=== PATIENT | male | born 1980 | race Caucasian/White ===

== ENCOUNTER 2024-10-08 15:06 | Inpatient (IN) | payer SELFPAY ==
[2024-10-08] VITALS (11 sets, daily range): BP systolic 119–164; BP diastolic 65–103
[~2024-10-08] VITALS: Ht 185.4 cm; Wt 93.1 kg
[2024-10-08] MEDS ORDERED: LIDOcaine HCl 1% (Local Anesth.) 20 ML VIAL STI STA (15:23)
[2024-10-08] MEDS ORDERED: POVIDONE IODINE 0.5 OZ/BTL TOP ONE (15:25)
[2024-10-08] MEDS ORDERED: PIPERACILLIN Sodium-Tazobactam 3.375 GM in SODIUM CHLORIDE 0.9% 100 ML IV ONE (16:00)
[2024-10-08] MEDS ORDERED: ISOVUE-300 (Iopamidol) 100 ML SDV IV ONE (16:00)
[2024-10-08 16:18] LABS: BASO% 0.3 % (0-3); EOS% 1.2 % (0-8); HEMATOCRIT 45.5 % (39.0-50.0); HEMOGLOBIN 15.6 g/dl (14.0-18.0); IMMATURE GRANULOCYTES 0.4 % (0.0-5.0); MEAN CELL VOLUME 87.8 fL CALC (80.0-100.0); MEAN CORPUSCULAR HGB 30.1 pG CALC (26.0-32.0); MEAN CORPUSCULAR HGB CONC 34.3 g/dL CAL (32.0-36.0); MONO% 8.3 % (2-13); NEUT# 10.14 thou/uL (1.82-7.42); NEUT% 74.8 % (42-76); RED BLOOD COUNT 5.18 mill/uL (4.70-6.10); RED CELL DISTRI WIDTH 12.8 % (11.5-15.5)
[2024-10-08 16:40] LABS: ALBUMIN 4.5 g/dL (3.2-5.0); BILIRUBIN, TOTAL 0.9 mg/dL (0.2-1.3); CREATININE 0.7 mg/dL (0.7-1.3); POTASSIUM 3.9 mmol/l (3.5-5.1); TOTAL PROTEIN 7.8 g/dL (6.3-8.2)
[2024-10-08] MEDS ORDERED: SODIUM CHLORIDE 0.9% 1,000 ML IV ONE (16:50)
[2024-10-08] MEDS ORDERED: HYDROmorphone HCL 2 MG/AMP IV PRN ×2 (18:40→19:10)
[2024-10-08] MEDS ORDERED: MELATONIN 3 MG/TAB PO PRN (18:40)
[2024-10-08] MEDS ORDERED: LACTATED RINGER'S 1,000 ML IV PRN (18:40)
[2024-10-08] MEDS ORDERED: ACETAMINOPHEN 325 MG/TAB PO PRN (18:40)
[2024-10-08] MEDS ORDERED: ONDANSETRON 4 MG/TAB ODT SL PRN (18:40)
[2024-10-08] MEDS ORDERED: ONDANSETRON HCl 4 MG/2 ML SDV IV PRN (18:40)
[2024-10-08] MEDS ORDERED: oxyCODONE HCL 5 MG/TAB PO PRN (18:40)
[2024-10-08] MEDS ORDERED: INSULIN LISPRO 100 UNITS/ML ML SC SCH (21:00)
[2024-10-08] MEDS ORDERED: VANCOMYCIN HCL 2 GM in SODIUM CHLORIDE 0.9% 500 ML IV SCH (21:00)
[2024-10-09] VITALS (10 sets, daily range): BP systolic 104–127; BP diastolic 51–78
[2024-10-09 04:48] LABS: BASO% 0.3 % (0-3); EOS% 1.8 % (0-8); HEMATOCRIT 44.1 % (39.0-50.0); IMMATURE GRANULOCYTES 1.1 % (0.0-5.0); LYMPH% 20.9 % (15-41); MEAN CELL VOLUME 87.5 fL CALC (80.0-100.0); MEAN CORPUSCULAR HGB 29.8 pG CALC (26.0-32.0); MONO% 8.5 % (2-13); NEUT# 7.01 thou/uL (1.82-7.42); NEUT% 67.4 % (42-76); RED BLOOD COUNT 5.04 mill/uL (4.70-6.10); RED CELL DISTRI WIDTH 12.7 % (11.5-15.5)
[2024-10-09] MEDS ORDERED: VANCOMYCIN HCL 1.25 GM in SODIUM CHLORIDE 0.9% 250 ML IV SCH ×2 (05:00→13:00)
[2024-10-09 06:11] LABS: ALBUMIN 3.6 g/dL (3.2-5.0); BILIRUBIN, TOTAL 0.9 mg/dL (0.2-1.3); CREATININE 0.6 mg/dL (0.7-1.3); MAGNESIUM 1.7 mg/dL (1.6-2.3); POTASSIUM 3.8 mmol/l (3.5-5.1); TOTAL PROTEIN 6.6 g/dL (6.3-8.2)
[2024-10-09] MEDS ORDERED: FAMOTIDINE 10MG/ML 2ML SDV IV ONE (09:03)
[2024-10-09] MEDS ORDERED: STERILE WATER FOR IRRIGATION 500 ML BTL IR ONE (09:15)
[2024-10-09] MEDS ORDERED: SODIUM CHLORIDE 1,000 ML BTL IR ONE (09:15)
[2024-10-09] MEDS ORDERED: SODIUM CHLORIDE 20 ML/VIAL SDV ONE (09:44)
[2024-10-09] MEDS ORDERED: BUPIVACAINE 0.5% ONE (09:48)
[2024-10-09] MEDS ORDERED: EPINEPHRINE ONE (09:48)
[2024-10-09] MEDS ORDERED: DEXTROSE 250 ML IV PRN (11:35)
[2024-10-09] MEDS ORDERED: PIPERACILLIN Sodium-Tazobactam 3.375 GM in SODIUM CHLORIDE 0.9% 100 ML IV SCH ×2 (12:00)
[2024-10-09] MEDS ORDERED: VANCOMYCIN HCL 1,250 MG in SODIUM CHLORIDE 0.9% 225 ML IV SCH (13:00)
[2024-10-09] MEDS ORDERED: PROPOFOL 200 MG/20 ML VIAL IV ONE (16:30)
[2024-10-09] MEDS ORDERED: LIDOCAINE HCL 2% 2ML SDV IV ONE (16:30)
[2024-10-09] MEDS ORDERED: SODIUM CHLORIDE 0.9% 1,000 ML BAG IV ONE (16:30)
[2024-10-09] MEDS ORDERED: GLYCOPYRROLATE 0.2 MG/ML IV ONE (16:30)
[2024-10-09] MEDS ORDERED: ACETAMINOPHEN 1,000 MG/100 ML VIAL IV ONE (16:30)
[2024-10-09] MEDS ORDERED: MIDAZOLAM HCL 2 MG/2 ML VIAL IV ONE (16:30)
[2024-10-09] MEDS ORDERED: LACTATED RINGER'S 1,000 ML IV PRN (20:25)
[2024-10-10 04:06] VITALS: BP 119/71
[2024-10-10 05:31] LABS: BASO% 0.4 % (0-3); EOS% 2.9 % (0-8); HEMOGLOBIN 13.8 g/dl (14.0-18.0); IMMATURE GRANULOCYTES 0.8 % (0.0-5.0); LYMPH% 24.8 % (15-41); MEAN CELL VOLUME 88.3 fL CALC (80.0-100.0); MEAN CORPUSCULAR HGB 30.5 pG CALC (26.0-32.0); MEAN CORPUSCULAR HGB CONC 34.5 g/dL CAL (32.0-36.0); MONO% 8.7 % (2-13); NEUT# 5.77 thou/uL (1.82-7.42); NEUT% 62.4 % (42-76); RED BLOOD COUNT 4.53 mill/uL (4.70-6.10); RED CELL DISTRI WIDTH 12.7 % (11.5-15.5)
[2024-10-10 05:38] LABS: ALBUMIN 3.2 g/dL (3.2-5.0); BILIRUBIN, TOTAL 0.8 mg/dL (0.2-1.3); CREATININE 0.6 mg/dL (0.7-1.3); MAGNESIUM 1.6 mg/dL (1.6-2.3); POTASSIUM 3.8 mmol/l (3.5-5.1); TOTAL PROTEIN 5.9 g/dL (6.3-8.2)
[2024-10-10 07:00] VITALS: BP 109/64
[2024-10-10] MEDS ORDERED: INSULIN GLARGINE 100 UNITS/ML SC SCH (09:00)
[2024-10-10] MEDS ORDERED: VANCOMYCIN HCL 1,500 MG in SODIUM CHLORIDE 0.9% 470 ML IV SCH (13:00)
[2024-10-10 16:00] VITALS: BP 106/67
[2024-10-10 18:30] VITALS: BP 127/78
[2024-10-10 18:40] VITALS: BP 127/78
[2024-10-11 04:00] VITALS: BP 132/82
[2024-10-11 06:54] VITALS: BP 134/79
[2024-10-11 07:11] VITALS: BP 134/79
[2024-10-11] MEDS ORDERED: LANTUS100 UNIT SC (09:37)
[2024-10-11] MEDS ORDERED: METFORMIN500 M2 PO (09:38)
[2024-10-11] MEDS ORDERED: BACTRIM DS1 TAB PO (09:39)
[2024-10-11] MEDS ORDERED: LORTAB 5/3255 MG PO (09:40)
== END 2024-10-11 12:45 | disposition home or self-care (01) | DRG 581 ==
LOC: ED 15:06 → ED-I 18:10 → ED 18:43 → MS2 18:44
PROVIDERS: Nurse Practitioner Family; ADMIT Internal Medicine; ATTEND Internal Medicine
PROC: 0H99XZZ Drainage of Perineum Skin, External Approach (ICD-10-PCS; principal; 2024-10-09)
DX: L02.215 Cutaneous abscess of perineum (principal); N49.2 Inflammatory disorders of scrotum; B95.4 Other streptococcus as the cause of diseases classified elsewhere; E11.9 Type 2 diabetes mellitus without complications; F17.200 Nicotine dependence, unspecified, uncomplicated
CPT/HCPCS: J0131; J1171; J1596; J1815; J2543; J3370; Q9967